=== PATIENT | male | born 1950 | race Caucasian/White ===

== ENCOUNTER 2019-11-03 10:13 | Outpatient (CLI) | payer OTHER ==
--- NOTE | 2019-11-04 16:45 | Ultrasound Report ---
Reason: TOBACCO USE Procedure Date: 11/03/2019 Accession Number: [id number] / [id number] Procedure: US - Aorta Screening CPT Code: Final Report FULL RESULT: EXAM: AORTIC DOPPLER ULTRASOUND EXAM DATE: 11/03/2019 10:50 AM. CLINICAL HISTORY: Tobacco use. COMPARISON: ABDOMEN/PELVIS W/ 06/15/2016 6:09 PM. TECHNIQUE: Real-time sonographic imaging of retroperitoneal vascular structures, including color-flow, Doppler flow and spectral analysis was performed by the yarn worker. Multiple branch service representative static images were saved for review. FINDINGS: Aorta: The abdominal aorta was adequately visualized. No evidence for abdominal aortic aneurysm. Aorta: Proximal: Sagittal AP 2.7 x 2.5 cm. Mid: Transverse 2.1 x 2.4 cm. Distal: Transverse 1.9 x 1.9 cm. Caliber: WNL: Yes. Plaque visualized: Yes. Iliacs: Right Iliac: Transverse 1.4 x 1.1 cm. Left Iliac: Transverse 1.5 x 1.1 cm. Iliac Vessels: The visualized proximal common iliac arteries are mildly ectatic. Other: There is some mild multifocal atherosclerotic plaque. IMPRESSION: No aortic aneurysm. Mildly ectatic iliac arteries. Mild multifocal plaque. [facility]
== END 2019-11-03 10:14 | disposition home or self-care (01) ==
LOC: DI 10:13
PROVIDERS: ATTEND Physician Assistant
DX: Z13.6 Encounter for screening for cardiovascular disorders (principal); I77.89 Other specified disorders of arteries and arterioles; Z72.0 Tobacco use
CPT/HCPCS: 76706

== ENCOUNTER 2021-04-28 14:31 | Outpatient (CLI) | payer MEDICARE ==
[2021-04-28 14:58] LABS: BASOPHILS % (AUTO) 0.5 %; EOSINOPHILS # (AUTO) 0.1 10^3/uL (0.0-0.7); HCT - HEMATOCRIT 44.2 % (42.0-52.0); HGB - HEMOGLOBIN 14.7 g/dL (14.0-18.0); LYMPHOCYTES # (AUTO) 1.5 10^3/uL (1.5-3.5); LYMPHOCYTES % (AUTO) 17.5 %; MEAN CORPUSCULAR HEMOGLOBIN 31.9 pg (27.0-31.0); MEAN CORPUSCULAR HGB CONC 33.3 g/dL (32.0-36.0); MEAN CORPUSCULAR VOLUME 95.9 fL (80.0-94.0); MEAN PLATELET VOLUME 9.5 fL (7.4-11.4); MONOCYTES # (AUTO) 0.7 10^3/uL (0.0-1.0); MONOCYTES % (AUTO) 8.3 %; NEUTROPHILS # (AUTO) 6.4 10^3/uL (1.5-6.6); NEUTROPHILS % (AUTO) 72.5 %; PLT - PLATELET COUNT 211 10^3/uL (130-450); RED BLOOD COUNT 4.61 10^6/uL (4.70-6.10); RED CELL DISTRIBUTION WIDTH 13.2 % (12.0-15.0); WHITE BLOOD COUNT 8.8 x10^3/uL (4.8-10.8)
[2021-04-28 15:03] LABS: BILIRUBIN,URINE NEGATIVE (NEGATIVE); GLUCOSE, URINE (UA) NEGATIVE (NEGATIVE); KETONES,URINE (UA) NEGATIVE (NEGATIVE); LEUKOCYTE ESTERASE, URINE NEGATIVE (NEGATIVE); NITRITE,URINE NEGATIVE (NEGATIVE); OCCULT BLOOD,URINE NEGATIVE (NEGATIVE); PROTEIN,URINE TRACE mg/dL (NEGATIVE); UROBILINOGEN,URINE 0.2 (NORMAL) E.U./dL (NORMAL)
[2021-04-28 15:10] LABS: CLARITY,URINE CLEAR (CLEAR)
[2021-04-28 15:16] LABS: ALBUMIN 3.9 g/dL (3.2-5.5); BILIRUBIN,TOTAL 0.9 mg/dL (0.2-1.0); CALCIUM 9.1 mg/dL (8.5-10.3); POTASSIUM 4.5 mmol/L (3.5-5.0); TOTAL PROTEIN 7.8 g/dL (6.7-8.2)
[2021-04-28 15:29] LABS: BACTERIA,URINE Rare /HPF (None Seen); RBC,URINE 0-5 /HPF (0-5); SQUAMOUS EPITHELIAL CELL,UR RARE Squamous (<= Few); WBC,URINE 0-3 /HPF (0-3)
== END 2021-04-28 14:32 | disposition home or self-care (01) ==
LOC: LAB 14:31
PROVIDERS: ATTEND Nurse Practitioner Family
DX: R19.7 Diarrhea, unspecified (principal)
CPT/HCPCS: 36415; 80053; 81001; 85025

== ENCOUNTER 2021-04-29 08:00 | Outpatient (CLI) | payer MEDICARE | END 2021-04-29 08:01 | disposition home or self-care (01) | LOC: LAB.R 08:00 | PROVIDERS: ATTEND Nurse Practitioner Family | DX: R19.7 Diarrhea, unspecified (principal) | CPT/HCPCS: 81599; 83630; 87015; 87045; 87046; 87077; 87177; 87209; 87272; 87329; 87427; 87449 ==